=== PATIENT | female | born 1995 | race Caucasian/White ===

== ENCOUNTER 2020-10-23 12:34 | Emergency (ER) | payer OTHER, SELFPAY ==
--- NOTE | ~2020-10-23 | CT_ITS ---
EXAMINATION: CT brain wo con EXAM DATE: 10/23/2020 15:28 INDICATION: Bilateral frontal headache. TECHNIQUE: Spiral CT of the head was performed without contrast. Axial, coronal and sagittal images were reviewed. The dose-length product (DLP) for this examination was 605.33 mGy-cm. The exposure w as tailored according to patient size, and iterative reconstruction (ASIR) was used as additional dos e reduction technique. There is no prior study for comparison. FINDINGS: There is no acute intraparenchymal hemorrhage. No evidence of intraparenchymal brain mass lesion. No evidence of acute infarction. There is no mass effect or midline shift. The ventricles are normal in size. There are no extra-axial collections. There are no acute calvarial fractures. T he orbits are unremarkable. Soft tissue is unremarkable. There is severe sinus disease. Consider si nusitis. IMPRESSION: 1. No acute intracranial findings. 2. Extensive sinus opacity, consider sinusitis. Reviewed, dictated and finalized at location B.
[2020-10-23 12:37] VITALS: BP 126/78; PULSE 88; RESP 17; TEMP 36.4; O2SAT 100
--- NOTE | 2020-10-23 14:45 | PC.NURSE ---
1445 pt. was asleep in waiting room; easily awaken, normal relaxed posture, normal gait, no signs of photophobia, no periorbital edema.
[2020-10-23 15:00] VITALS: BP 122/82; PULSE 77; RESP 16; O2SAT 100
--- NOTE | 2020-10-23 15:01 | ED.HA ---
HPI - Headache General Chief Complaint: Headache Stated Complaint: MIGRAINE H/A, Time Seen by Provider: 10/23/20 14:46 Source: patient Mode of arrival: ambulatory Limitations: no limitations History of Present Illness HPI Narrative: 25-year-old female Basically healthy Here for evaluation of headache Patient states she has had a migraine for a week which has not responded to [id number] medications Her headache is bilateral, frontal, around her eyes, and is now starting to cause her upper teeth ache She does not have a fever, she does not have neck pain, she does not have visual symptoms, she is a little sensitive to light She has never been diagnosed with migraine headaches previously Yesterday she saw her primary care doctor who diagnosed sinusitis, correctly it would appear, and prescribed Augmentin which she has now been taking for nearly 24 hours Related Data Allergies Allergy/AdvReac Type Severity Reaction Status Date / Time brompheniramine Allergy Intermediate Unverified 07/10/14 14:47 phenylephrine Allergy Intermediate Unverified 07/10/14 14:47 Review of Systems Review of Systems: All systems reviewed & are unremarkable except as noted in HPI and below Constitutional: Constitutional: Reports no additional constitutional complaints, Denies chills, Denies fever(s) and Denies headache(s) Eyes: Eyes: Reports no additional eye complaints, Denies change in vision and Reports photophobia ENT: Denies headache(s), Reports nasal congestion and Denies sore throat Cardiovascular: Cardiovascular: Denies chest pain and Denies dyspnea Respiratory: Respiratory: Denies cough Gastrointestinal: Gastrointestinal: Denies diarrhea, Denies nausea and Denies vomiting Genitourinary: Genitourinary: Denies urinary frequency Musculoskeletal: Musculoskeletal: Denies myalgias, Denies deformity, Denies arthralgias, Denies joint swelling and Denies numbness Integumentary/Breasts: Skin/Breast: Denies rash and Denies wounds Neurologic: Denies dizziness, Reports headache(s), Denies focal weakness, Denies numbness and Denies weakness Psychiatric: Psychiatric: Reports no additional psychiatric complaints Endocrine: Endocrine: Reports no additional endocrine complaints Hematologic/Lymphatic: Hematologic/Lymphatic: Reports no additional hematologic/lymphatic complaints Allergic/Immunologic: Allergic/Immunologic: Reports no additional allergic/immunologic complaints Exam Const: General: cooperative, no acute distress and alert Nutritional Appearance: obese Orientation/consciousness: patient oriented x3 (alert) HENMT: Head: normal to inspection, normocephalic, atraumatic, no contusions, no hematomas and no lacerations Ears: external ears normal General nose exam: no epistaxis Face and sinus: sinus tenderness (Frontal and bilateral maxillary sinus tenderness to percussion) Other: TMJ nontender Eyes: Conjunctivae: conjunctivae normal Pupils: Equal, round and reactive pupils present EOM: EOMs intact bilaterally Other: Bilaterally normal funduscopic exam with sharp discs and physiologic cups visible Neck: Neck: normal visual inspection, no lymphadenopathy, no meningeal signs, supple and no JVD Other: Supple Resp: Effort & Inspection: normal respiratory effort and not labored Auscultation: other (BS =) Skin: General skin exam: normal color and no rashes or lesions noted Neuro: General: patient oriented x3 (alert), moves all extremities, no meningeal signs, no focal motor deficits and CN's II-XI intact bilaterally Speech: normal speech Psych: Affect: normal affect Course Course Emergency Course: Discussed with patient, does not per se sound like a migraine headache it sounds like a sinus headache which is being appropriately treated with antibiotics and that she can add [id number] antihistamines and decongestants in addition to either Tylenol or NSAIDs; we can test the migraine cocktail but only the Toradol is
[2020-10-23] MEDS: KETOROLAC 30 MG/ML VIAL (*BKC) IV PUSH (15:45)
[2020-10-23] MEDS: PROCHLORPERAZINE EDISYLATE 10 MG/2 ML VIAL IV PUSH (15:45)
[2020-10-23] MEDS: LACTATED RINGERS 1,000 ML 999 ML IV CONT (15:45)
[2020-10-23 16:02] VITALS: BP 112/71; PULSE 60; RESP 16; O2SAT 98
[2020-10-23 16:55] VITALS: BP 112/72; PULSE 72; RESP 18; TEMP 36.7; O2SAT 99
== END 2020-10-23 16:55 | disposition home or self-care (01) ==
PROVIDERS: Emergency Provider Emergency Medicine; PCP Nurse Practitioner Family
DX: R51.9 Headache, unspecified (principal)
CPT/HCPCS: 70450; 96361; 96374; 96375; 99284; J0780; J1100; J1885; J7120

== ENCOUNTER 2021-07-30 17:37 | Emergency (ER) | payer OTHER, SELFPAY ==
--- NOTE | ~2021-07-30 | XR_ITS ---
EXAMINATION: XR chest 2V Exam Date/Time: 07/30/2021 18:20 CDT HISTORY: STERNAL CP,RT SIDE TINGLING DOWN ARM Comparison: None available. RESULT: Lines, tubes, and devices: None. Lungs and pleura: Subtle ill-defined by a lateral lower lung groundglass opacities. Cardiomediastinal silhouette: Stable cardiomediastinal silhouette. Other: No acute osseous or upper abdominal finding. IMPRESSION: Ill-defined lower lung opacities, may represent atypical/viral pneumonia in the appropriate clinical context. Reviewed, dictated and finalized at location K.
--- NOTE | 2021-07-30 17:40 | ECG_ITS ---
Measurements Intervals [place] Rate: 94 P: 30 NE: 181 QRS: 33 QRSD: 93 T: 30 QT: 355 QTc: 444 Interpretive Statements SINUS RHYTHM NORMAL ELECTROCARDIOGRAM NO PREVIOUS ECG AVAILABLE FOR COMPARISON Electronically Signed On 08-01-2021 16:00:41 CDT by Edgar Cox M.D.
[2021-07-30 17:41] VITALS: BP 144/78; PULSE 87; RESP 18; TEMP 36.6; O2SAT 100
[2021-07-30 18:00] LABS: Basophils Percent Auto 0.9 % (0.2-1.2); Eosinophils Absolute Auto 0.1 K/mm3 (0-0.3); Eosinophils Percent Auto 2.5 % (0-4.4); Hematocrit 36.9 % (37.0-47.0); Hemoglobin 11.4 g/dL (12.0-15.0); Immature Granulocyte Absolute 0.02 K/mm3 (0.00-0.031); Immature Granulocyte Percent A 0.5 % (0-0.5); Lymphocytes Absolute Auto 2.26 K/mm3 (0.9-3.2); Lymphocytes Percent Auto 51.8 % (18.3-44.2); Mean Corpuscular HGB Conc 30.9 g/dl (32-36); Mean Corpuscular Volume 84.2 fl (80-100); Mean Platelet Volume 9.3 fl (7.4-10.4); Monocytes Absolute Auto 0.3 K/mm3 (0.1-0.6); Monocytes Percent Auto 5.7 % (2.6-8.5); Neutrophils Absolute Auto 1.7 K/mm3 (1.3-6.7); Neutrophils Percent Auto 38.6 % (45.5-73.1); Platelet Count Result 260 k/mm3 (150-375); Red Blood Count 4.38 M/mm3 (4.2-5.4); Red Cell Distribution Width 17.1 % (11.5-14.5); White Blood Count 4.4 K/mm3 (4.5-10.0)
[2021-07-30 18:09] LABS: Alanine Aminotransferase 89 U/L (6-35); Albumin Level 3.7 g/dL (3.5-5.1); Alkaline Phosphatase 170 U/L (38-126); Anion Gap 5 mmol/L (8-16); Aspartate Amino Transferase 67 U/L (14-36); Bilirubin,Total 0.6 mg/dL (0.2-1.3); Blood Urea Nitrogen 8 mg/dL (7-17); Calcium 8.4 mg/dL (8.4-10.2); Carbon Dioxide 27 mmol/L (22-30); Chloride 106 mmol/L (98-107); Estimated CRCL calculation 159 ml/min; Estimated Glomerular Filt Rate > 60; Glucose 110 mg/dL (65-110); Lipase 74 U/L (23-300); Potassium 3.3 mmol/L (3.4-5.0); Sodium 138 mmol/L (137-145)
[2021-07-30 18:15] LABS: INR 1.1; Prothrombin Time 13.6 Seconds (11.1-14.7)
[2021-07-30 18:16] LABS: Partial Thromboplastin Time 28.7 SECONDS (22.3-36.8)
[2021-07-30 18:21] LABS: Troponin I < 0.012 ng/mL (0.000-0.034)
[2021-07-30 18:43] LABS: Atypical Lymphocytes Present; Ovalocytes 1+ (NORMAL); Platelet Estimate Adequate (Adequate)
[2021-07-30] MEDS: ASPIRIN 81 MG CHEWABLE TABLET 324 MG PO (20:06)
--- NOTE | 2021-07-30 20:21 | ED.CHESTPAIN ---
HPI - Chest Pain General Chief Complaint: Chest Pain Stated Complaint: near syncope x weeks, now chest pain today Time Seen by Provider: 07/30/21 19:52 History of Present Illness HPI narrative: 18-year-old female presenting to the emergency department for evaluation of headache, chest pain and near syncopal episodes. Patient does have a history of migraines. Patient states she has been having more frequent migraines over the last few months. Patient states over the last few days that she has had some episodes of intermittent chest pain and some episodes of near syncope. Patient denies having any actual syncope. Patient denies any prior cardiac history. Patient denies current diabetes but does have history of gestational diabetes. Related Data Allergies Allergy/AdvReac Type Severity Reaction Status Date / Time brompheniramine Allergy Intermediate Other Verified 07/30/21 17:44 phenylephrine Allergy Intermediate Other Verified 07/30/21 17:44 Review of Systems Review of Systems: CONSTITUTIONAL: Denies fever, chills, or sweats. EYES: Denies visual changes, redness, or discharge. ENT: Denies rhinorrhea, congestion, sore throat, or otalgia. CARDIOVASCULAR: Denies chest pain, palpitations, or edema. RESPIRATORY: Denies cough or dyspnea. GASTROINTESTINAL: Denies abdominal pain, nausea, vomiting, or diarrhea. GENITOURINARY: Denies dysuria or hematuria. SKIN: Denies rash or itching. MUSCULOSKELETAL: Denies back pain, joint pain, or myalgia. NEUROLOGIC: See HPI PSYCHIATRIC: Denies anxiety or depression. Exam Narrative: APPEARANCE: Well appearing, no pain, no distress, well-nourished. HEAD: normocephalic, atraumatic. EYES: PERRLA/EOMI, conjunctivae clear. NOSE: Normal no drainage THROAT: Pharynx clear, no exudate. NECK: Supple. No adenopathy, no masses. RESPIRATORY: Airway patent, respirations nonlabored. Clear to auscultation bilaterally, no rales, rhonchi, wheezing. CARDIOVASCULAR: Regular rate and rhythm without murmurs rubs or gallops. ABDOMINAL: Soft, nontender, nondistended, normal bowel sounds MUSCULOSKELETAL: Moves all extremities. Strength/ROM intact, No edema, No calf tenderness. NEURO: Alert. Cranial nerves II through XII intact. Grossly intact SKIN: Warm, dry. Normal Color Course Course Emergency Course: Patient reports her headache is improved with IV fluids. Patient's serial troponins were negative. Patient was courage of close follow-up with her primary care physician. Vital Signs Vital signs: Vital Signs Temperature 97.9 F 07/30/21 17:41 Pulse Rate 87 07/30/21 17:41 Respiratory Rate 18 07/30/21 17:41 Blood Pressure 144/78 H 07/30/21 17:41 Pulse Oximetry 100 07/30/21 17:41 Oxygen Delivery Room Air 07/30/21 17:41 Temperature 97.9 F 07/30/21 17:41 Pulse Rate 87 07/30/21 22:46 Respiratory Rate 20 07/30/21 22:46 Blood Pressure 115/67 07/30/21 22:46 Pulse Oximetry 100 07/30/21 22:46 Oxygen Delivery Room Air 07/30/21 17:41 MDM - Chest Pain Lab Data Attestation: I reviewed the patient's lab results. Result diagrams: 07/30/21 17:45 07/30/21 17:45 Labs: Lab Results 07/30/21 07/30/21 07/30/21 Range/Units 17:45 17:45 17:45 WBC 4.4 L (4.5-10.0) K/mm3 RBC 4.38 (4.2-5.4) M/mm3 Hgb 11.4 L (12.0-15.0) g/dL Hct 36.9 L (37.0-47.0) % MCV 84.2 (80-100) fl MCH 26.0 (26-34) pg MCHC 30.9 L (32-36) g/dl RDW 17.1 H (11.5-14.5) % Plt Count 260 (150-375) k/mm3 MPV 9.3 (7.4-10.4) fl Immature Gran % (Auto) 0.5 (0-0.5) % Neut % (Auto) 38.6 L (45.5-73.1) % Lymph % (Auto) 51.8 H (18.3-44.2) % [place] % (Auto) 5.7 (2.6-8.5) % Eos % (Auto) 2.5 (0-4.4) % Baso % (Auto) 0.9 (0.2-1.2) % Lymph # (Auto) 2.26 (0.9-3.2) K/mm3 [place] # (Auto) 0.3 (0.1-0.6) K/mm3 Eos # (Auto) 0.1 (0-0.3) K/mm3 Baso # (Auto) 0.0 (0.0-0.1) K/mm3 Abs Immat Gran (auto) 0.02 (0.00-0.031)
[2021-07-30 21:15] LABS: Troponin I < 0.012 ng/mL (0.000-0.034)
[2021-07-30] MEDS: SODIUM CHLORIDE 0.9% IV 1,000 ML 999 ML IV CONT (21:57)
[2021-07-30 22:46] VITALS: BP 115/67; PULSE 87; RESP 20; O2SAT 100
--- NOTE | 2021-08-13 15:43 | PC.NURSE ---
LATE ENTRY This note is being entered to document information to the patient's record. The following information was omitted on [07/30/2021], by [Marcell Trent RN]. NS stop time is 3613
== END 2021-07-30 22:48 | disposition home or self-care (01) ==
PROVIDERS: Emergency Medicine; Emergency Provider Emergency Medicine; PCP Nurse Practitioner Family
DX: R51.9 Headache, unspecified (principal); R07.9 Chest pain, unspecified
CPT/HCPCS: 36415; 71046; 80053; 83690; 84484; 85025; 85610; 85730; 93005; 96360; 99284; A9270; J7030

== ENCOUNTER 2022-11-30 11:40 | Emergency (ER) | payer OTHER, SELFPAY ==
[2022-11-30 11:53] VITALS: BP 106/48; PULSE 73; RESP 16; TEMP 36.6; O2SAT 100
--- NOTE | 2022-11-30 11:57 | ED.EAR ---
HPI - Ear Problem General Chief complaint: Ear Stated complaint: right ear pain Time Seen by Provider: 11/30/22 11:57 Source: patient Mode of arrival: ambulatory Limitations: no limitations History of Present Illness HPI Narrative: 27-year-old female presents with complaint of sinus and nasal congestion, right ear pressure since yesterday. Reports low-grade fever this morning. One dose DayQuil cold and Sinus last night prior to bed. Denies nausea vomiting diarrhea. No chest pain or shortness of. Patient concerned she has ear infection. All systems reviewed and negative except as noted above. Related Data Home Medications Medication Instructions Recorded Confirmed norgestimate 0.25 mg-ethinyl 1 tablet PO DAILY 11/30/22 11/30/22 estradiol 35 mcg tablet (Ashley) Allergies Allergy/AdvReac Type Severity Reaction Status Date / Time brompheniramine Allergy Intermediate Other Verified 11/30/22 11:42 phenylephrine Allergy Intermediate Other Verified 11/30/22 11:42 Review of Systems Review of Systems: CONSTITUTIONAL: Denies fever, chills, or sweats. EYES: Denies visual changes, redness, or discharge. ENT: Reports rhinorrhea, congestion, right ear pain. Denies sore throat. CARDIOVASCULAR: Denies chest pain, palpitations, or edema. RESPIRATORY: Denies cough or dyspnea. GASTROINTESTINAL: Denies abdominal pain, nausea, vomiting, or diarrhea. GENITOURINARY: Denies dysuria or hematuria. SKIN: Denies rash or itching. MUSCULOSKELETAL: Denies back pain, joint pain, or myalgia. NEUROLOGIC: Denies headache, numbness, or weakness. PSYCHIATRIC: Denies anxiety or depression. All other systems reviewed are negative, except as documented in HPI. PMFSH Comments At time of signature, agree with nursing past medical, surgical, social and family history. There is no relevant family history pertinent to the presenting complaint. Exam Narrative: GENERAL: This is a well-nourished, well-developed patient, in no apparent distress. HEAD: normocephalic, atraumatic. EYES: PERRL. Sclera clear/white. Vision is grossly intact. EARS: External ears normal, auditory canals clear and without drainage, left TM normal. Right TM is erythematous, bulging. NOSE: External nose normal with Clear nasal drainage, mild erythema to nares without swelling. THROAT: Mucous membranes moist, Clear postnasal drainage. NECK: Neck supple, non-tender without lymphadenopathy, masses or thyromegaly. CARDIOVASCULAR: Regular rate and rhythm without murmurs, gallops, or rubs. RESPIRATORY: Clear to auscultation. Breath sounds equal bilaterally. No wheezes, rales, or rhonchi. GASTROINTESTINAL: Abdomen soft, non-tender, nondistended. Bowel sounds are active. No hepato-splenomegaly, or palpable masses. No guarding. SKIN: warm, Dry, intact with no suspicious lesions or rash, good texture and turgor. NEURO: awake, alert, and oriented to person, place and time. There were no obvious focal neurologic abnormalities. EXTREMITIES: No joint tenderness, effusion, or edema noted. Course Course Level of Care: Express Care Visit Vital Signs Vital signs: Vital Signs Temperature 36.6 C 11/30/22 11:53 Pulse Rate 73 11/30/22 11:53 Respiratory Rate 16 11/30/22 11:53 Blood Pressure 106/48 L 11/30/22 11:53 Pulse Oximetry 100 11/30/22 11:53 Oxygen Delivery Room Air 11/30/22 11:53 Temperature 36.6 C 11/30/22 11:53 Pulse Rate 73 11/30/22 11:53 Respiratory Rate 16 11/30/22 11:53 Blood Pressure 106/48 L 11/30/22 11:53 Pulse Oximetry 100 11/30/22 11:53 Oxygen Delivery Room Air 11/30/22 11:53 Reviewed Medical Decision Making MDM Narrative Medical decision making narrative: Patient is aware of diagnosis, understands and agrees to treatment plan. Anticipatory guidance given. Patient agrees to follow-up as directed and is aware of reasons to seek care at the emergency department. Portions of this record may have been created
== END 2022-11-30 12:10 | disposition home or self-care (01) ==
PROVIDERS: Emergency Provider Nurse Practitioner Family; PCP Nurse Practitioner Family
DX: H66.91 Otitis media, unspecified, right ear (principal); J01.90 Acute sinusitis, unspecified
CPT/HCPCS: 99213; G0463

== ENCOUNTER 2024-11-22 11:04 | Emergency (ER) | payer OTHER, SELFPAY ==
[2024-11-22 11:15] VITALS: BP 95/59; PULSE 70; RESP 16; TEMP 36.6; O2SAT 100
--- NOTE | 2024-11-22 11:18 | ED_ITS ---
HPI - General Adult General Chief complaint: Skin/Abscess/Foreign Body Stated complaint: rash Source: patient Mode of arrival: ambulatory Limitations: no limitations History of Present Illness HPI narrative: Pt is a 29 y/o female presenting with c/o rash to her face. Rash has been ongoing x several days. Describes rash as 'dry'. NO tx initiated [employer]. She denies any new lotions, personal hygiene products, soaps, creams, detergents, medications, foods, pets, or any other new skin contacts. No recent travel. No URI sx. NO constitutional sx. No additional complaints. Related Data Home Medications ?Medication ?Instructions ?Recorded ?Confirmed ?Last Taken ?Type apixaban 5 mg tablet (Eliquis) mg 11/22/24 Unknown Hi story fluoxetine 20 mg capsule mg 11/22/24 Unknown History Allergies Allergy/AdvReac Type Severity Reaction Status Date / Time brompheniramine Allergy Intermediate Other Verified 11/22/24 11:13 phenylephrine Allergy Intermediate Other Verified 11/22/24 11:13 Review of Systems Review of Systems: CONSTITUTIONAL: Denies body aches, fever, chills, or sweats. EYES: Denies visual changes, redness, or discharge. ENT: Denies rhinorrhea, congestion, sore throat, or otalgia. CARDIOVASCULAR: Denies chest pain, palpitations, or edema. RESPIRATORY: Denies cough or dyspnea. GASTROINTESTINAL: Denies abdominal pain, nausea, vomiting, or diarrhea. GENITOURINARY: Denies dysuria or hematuria. SKIN: Reports rash, denies itching, or wounds. MUSCULOSKELETAL: Denies back pain, joint pain, or myalgia. NEUROLOGIC: Denies headache, numbness, tingling, or weakness. PSYCH: Denies depression or anxiety. All systems reviewed & are unremarkable except as noted in HPI and below Exam Narrative: GENERAL: Well-appearing, well-nourished, morbidly obese, and in no acute distress. HEAD: Normocephalic, atraumatic. EYES: EOMI. No redness or drainage. Conjunctivae normal. ENT: Mucous membranes pink and moist. NECK: Normal AROM. Supple. CHEST: No respiratory distress. HEART: Regular rate EXTREMITIES: Normal range of motion. SKIN: Warm, dry. Numerous pink, scaly plaques scattered amongst face--no crusting, erythema, vesiculation, drainage, or evidence of secondary bacterial skin infection. Capillary refill normal. Normal skin turgor. NEURO: No focal deficits. Alert and oriented x3. Gait steady. PSYCH: Normal affect. No signs of depression or anxiety. Course Course Emergency Course: Skin on face is VERY dry. Encouraged use of mild soap, OTC hydrocortisone, aquaphor--avoiding fragrance, hot water, irritants. Son is here with HFMD--her rash does not appear to be HFMD and her rash was present prior to her son's. Level of Care: Express Care Visit Vital Signs Vital signs: Vital Signs Temperature 97.9 F 11/22/24 11:15 Pulse Rate 70 11/22/24 11:15 Respiratory Rate 16 11/22/24 11:15 Blood Pressure 95/59 L 11/22/24 11:15 Pulse Oximetry 100 11/22/24 11:15 Oxygen Delivery Room Air 11/22/24 11:15 Temperature 97.9 F 11/22/24 11:15 Pulse Rate 70 11/22/24 11:15 Respiratory Rate 16 11/22/24 11:15 Blood Pressure 95/59 L 11/22/24 11:15 Pulse Oximetry 100 11/22/24 11:15 Oxygen Delivery Room Air 11/22/24 11:15 Medical Decision Making Vital Signs Vital Signs: Vital Signs Temperature 97.9 F 11/22/24 11:15 Pulse Rate 70 11/22/24 11:15 Respiratory Rate 16 11/22/24 11:15 Blood Pressure 95/59 L 11/22/24 11:15 Pulse Oximetry 100 11/22/24 11:15 Oxygen Delivery Room Air 11/22/24 11:15 Temperature 97.9 F 11/22/24 11:15 Pulse Rate 70 11/22/24 11:15 Respiratory Rate 16 11/22/24 11:15 Blood Pressure 95/59 L 11/22/24 11:15 Pulse Oximetry 100 11/22/24 11:15 Oxygen Delivery Room Air 11/22/24 11:15 Discharge Plan Discharge Clinical Impression: Dermatitis Patient Disposition: Home Condition: Stable Instructions: Dermatitis (ED) Additional Instructions: Go straight to ER should your symptoms become worse or should any new symptoms develop Patient Language: Cam[place]onian Prescriptions: No Action norgestimate-ethinyl estradiol [[place]ley] 0.25-35 mg-mcg tablet 1 tablet PO DAILY amoxicillin 875 mg tablet 875 mg PO Q12H 10 Days Qty: 20 0RF fluticasone propionate [Flonase Allergy Relief] 50 mcg/actuation spray,suspension 1 spray intranasal BID Qty: 16 0RF Rx Instructions: administer into each nostril Follow-up/Referrals: Bonny,PRICILA Solitario [Primary Care Provider, Unknown] - 11/23/24 Time of Disposition: 11:14
== END 2024-11-22 11:30 | disposition home or self-care (01) ==
PROVIDERS: Emergency Provider Registered Nurse; PCP Nurse Practitioner Family
DX: L30.9 Dermatitis, unspecified (principal)
CPT/HCPCS: 99211; G0463